=== PATIENT | female | born 1935 | race Caucasian/White ===

== ENCOUNTER 2017-06-21 09:07 | Inpatient (IN) | payer OTHER ==
[~2017-06-21] VITALS: Ht 61 cm; Wt 5.0 kg
[2017-06-21] MEDS ORDERED: CARDIZEM LA240 MG (10:06)
[2017-06-21] MEDS ORDERED: CARDURA XL4 MG (10:07)
[2017-06-21] MEDS ORDERED: SYNTHROID137 MCG (10:07)
[2017-06-21] MEDS ORDERED: ATORVASTATIN CA20 MG (10:07)
[2017-06-21] MEDS ORDERED: AVAPRO300 MG (10:07)
[2017-06-21] MEDS ORDERED: CIPRO500 MG PO (15:55)
[2017-06-23] MEDS ORDERED: CEFDINIR300 MG PO (13:38)
[2017-06-23] MEDS ORDERED: FLONASE ALLERG9.9 ML NASAL (13:39)
== END 2017-06-23 14:25 | disposition home or self-care (01) | DRG 312 ==
LOC: ER 09:07 → MEDI 19:35
PROC: BW28ZZZ Computerized Tomography (CT Scan) of Head (ICD-10-PCS; principal; 2017-06-21)
DX: R55 Syncope and collapse (principal); N39.0 Urinary tract infection, site not specified; F41.8 Other specified anxiety disorders

== ENCOUNTER 2021-01-03 12:44 | Emergency (ER) | payer OTHER ==
[~2021-01-03] VITALS: Ht 157.5 cm; Wt 66.2 kg
[~2021-01-03 12:44] MED LIST: ATORVASTATIN CA20 MG; AVAPRO300 MG; CARDIZEM LA240 MG; CARDURA XL4 MG; CEFDINIR300 MG PO; CIPRO500 MG PO; FLONASE ALLERG9.9 ML NASAL; SYNTHROID137 MCG
[2021-01-03] MEDS ORDERED: INTEGRA F CAPS1 EACH (13:20)
[2021-01-03] MEDS ORDERED: COZAAR25 MG (13:20)
[2021-01-03] MEDS ORDERED: SIMVASTATIN5 MG (13:21)
[2021-01-03] MEDS ORDERED: DRAMAMINE LESS25 MG PO (17:43)
== END 2021-01-03 18:28 | disposition home or self-care (01) ==
LOC: ER 12:44
DX: S80.11XA Contusion of right lower leg, initial encounter (principal); S80.12XA Contusion of left lower leg, initial encounter; R42 Dizziness and giddiness; W18.09XA Striking against other object with subsequent fall, initial encounter; Y93.E8 Activity, other personal hygiene; Y92.012 Bathroom of single-family (private) house as the place of occurrence of the external cause; Y99.8 Other external cause status

== ENCOUNTER 2022-08-24 15:47 | Emergency (ER) | payer OTHER ==
[~2022-08-24] VITALS: Ht 157.5 cm; Wt 66.2 kg
[~2022-08-24 15:47] MED LIST changes: +COZAAR25 MG; +DRAMAMINE LESS25 MG PO; +INTEGRA F CAPS1 EACH; +SIMVASTATIN5 MG
== END 2022-08-24 21:10 | disposition home or self-care (01) ==
LOC: ER 15:47
DX: R55 Syncope and collapse (principal); R53.81 Other malaise; Z88.5 Allergy status to narcotic agent

== ENCOUNTER 2024-07-11 10:41 | Emergency (ER) | payer OTHER ==
[~2024-07-11] VITALS: Ht 157.5 cm; Wt 64.9 kg
[2024-07-11] MEDS ORDERED: ZETIA10 MG PO (12:19)
[2024-07-11] MEDS ORDERED: ATORVASTATIN CA40 MG PO (12:19)
[2024-07-11] MEDS ORDERED: METFORMIN HCL500 M3 PO (12:19)
[2024-07-11] MEDS ORDERED: GRALISE600 MG (12:20)
[2024-07-11] MEDS ORDERED: KETOROLAC TROMETHAMINE 15 MG VIAL IM STA (14:54)
[2024-07-11] MEDS ORDERED: KETOROLAC TROMETHAMINE 30 MG VIAL ONE (15:05)
[2024-07-11 15:38] LABS: BASO % 0.5 % (0.1-1.2); HEMATOCRIT 35.3 % (34.1-44.9); HEMOGLOBIN 11.8 g/dL (11.2-15.7); LYMPH # 1.65 (1.18-3.74); LYMPH % 25.4 % (19.3-53.1); MEAN CORPUSCULAR HEMOGLOBIN 29.7 pg (25.6-32.2); MONO # 0.54 (0.24-0.82); MONO % 8.3 % (4.7-12.5); NEUT # 4.25 (1.56-6.13); NEUT % 65.5 % (34.0-71.1); PLATELET COUNT 230 K/uL (163-369); RED BLOOD COUNT 3.97 M/uL (3.93-5.22); RED CELL DISTRIBUTION WIDTH 12.5 % (11.6-14.4)
[2024-07-11 15:58] LABS: PH,URINE 6.5 (5.0-8.0); URINE APPEARANCE Clear; URINE BILIRRUBIN Negative (NEGATIVE); URINE BLOOD Negative; URINE COLOR Yellow; URINE GLUCOSE Negative (NEGATIVE); URINE KETONE Negative (NEGATIVE); URINE LEUKOCYTE Small; URINE NITRATE Negative; URINE PROTEIN Negative (NEGATIVE); URINE UROBILINOGEN 0.2 E.U./dl
[2024-07-11 15:59] LABS: URINE BACTERIA 58.7 uL (0.0-1933); URINE EPITHELIAL CELLS 23.7 uL (0.0-38.8); URINE RBC 6.3 uL (0.0-20.8); URINE WBC 8.3 uL (0.0-23.2)
[2024-07-11 15:59] LABS: CALCIUM 8.9 mg/dL (8.5-10.1); POTASSIUM 4.11 mEq/L (3.5-5.1)
[2024-07-11 16:06] LABS: ALBUMIN 3.7 gm/dL (3.4-5.0); BILIRUBIN TOTAL 0.46 mg/dL (0.3-1.2); CREATININE SERUM 0.66 mg/dL (0.55-1.02); GFR 84.91; GLOBULINA 3.8 G/DL (2.4-3.5); TOTAL PROTEIN 7.5 gm/dL (6.4-8.2)
[2024-07-11 16:12] LABS: URINE CAST 0.14 uL (0.0-1.40)
== END 2024-07-11 17:33 | disposition home or self-care (01) ==
LOC: ER 11:35
PROVIDERS: Preventive Medicine Public Health & General Preventive Medicine
DX: M62.830 Muscle spasm of back (principal); R55 Syncope and collapse; Z88.8 Allergy status to other drugs, medicaments and biological substances; E11.9 Type 2 diabetes mellitus without complications; Z79.84 Long term (current) use of oral hypoglycemic drugs; I10 Essential (primary) hypertension; Z85.850 Personal history of malignant neoplasm of thyroid; K21.9 Gastro-esophageal reflux disease without esophagitis; M19.90 Unspecified osteoarthritis, unspecified site
CPT/HCPCS: 36415; 70450; 72125; 73560; 93005; 96372; 99284; J1885

== ENCOUNTER 2024-12-01 11:09 | Emergency (ER) | payer OTHER ==
[~2024-12-01] VITALS: Ht 152.4 cm; Wt 60.3 kg
[~2024-12-01 11:09] MED LIST changes: +ATORVASTATIN CA40 MG PO; +GRALISE600 MG; +METFORMIN HCL500 M3 PO; +ZETIA10 MG PO
[2024-12-01] MEDS ORDERED: ORPHENADRINE CITRATE 30 MG/ML AMPUL IM ONE (14:45)
[2024-12-01] MEDS ORDERED: ACETAMINOPHEN 500 MG GEL..CAP PO ONE ×2 (14:45→15:45)
[2024-12-01] MEDS ORDERED: ORPHENADRINE CITRATE 30 MG/ML AMPUL ONE (15:45)
[2024-12-01 17:10] LABS: BASO % 0.4 % (0.1-1.2); EOS # 0.00 (0.04-0.54); EOS % 0.0 % (0.7-7.0); LYMPH # 0.82 (1.18-3.74); LYMPH % 10.3 % (19.3-53.1); MEAN PLATELET VOLUME 9.80 fl (9.4-12.4); MONO # 0.51 (0.24-0.82); MONO % 6.4 % (4.7-12.5); NEUT # 6.54 (1.56-6.13); NEUT % 82.3 % (34.0-71.1); RED CELL DISTRIBUTION WIDTH 12.9 % (11.6-14.4)
[2024-12-01 17:42] LABS: ALT/SGPT 24.0 U/L (12-78); AST/SGOT 21.0 U/L (15-37); BILIRUBIN TOTAL 1.0 mg/dL (0.3-1.2); BUN CREA RATIO 17.0 (7.0-25.0); CREATININE SERUM 0.78 mg/dL (0.55-1.02); GFR 70.03; GLOBULINA 4.3 G/DL (2.4-3.5); GLUCOSE FASTING 155.0 mg/dL (65-100); OSMOLALITY SERUM 268.0 MOSM/KG (275-295)
[2024-12-01] MEDS ORDERED: ZANAFLEX2 M1 PO (18:27)
== END 2024-12-01 18:51 ==
LOC: ER 11:10
PROVIDERS: General Practice
DX: S30.0XXA Contusion of lower back and pelvis, initial encounter (principal); W18.39XA Other fall on same level, initial encounter; Y93.89 Activity, other specified; Y92.018 Other place in single-family (private) house as the place of occurrence of the external cause; Y99.9 Unspecified external cause status; R42 Dizziness and giddiness; E11.9 Type 2 diabetes mellitus without complications; Z79.84 Long term (current) use of oral hypoglycemic drugs; I10 Essential (primary) hypertension; E03.9 Hypothyroidism, unspecified; Z88.8 Allergy status to other drugs, medicaments and biological substances
CPT/HCPCS: 36415; 70450; 72100; 73521; 93005; 96372; 99284; J2360